=== PATIENT | male | born 1990 | race African-American/Black ===

== ENCOUNTER 2023-03-03 10:06 | Emergency (ER) | payer SELFPAY ==
[~2023-03-03] VITALS: Ht 177.8 cm; Wt 86.0 kg
[2023-03-03 10:12] VITALS: BP 110/80; PULSE 90; RESP 20; TEMP 99.5; O2SAT 98
[2023-03-03] MEDS ORDERED: CEPH500T MT (10:42)
[2023-03-03] MEDS ORDERED: SULF1TAB48 MT (10:42)
[2023-03-03] MEDS ORDERED: IBUP-2029 MT (10:42)
== END 2023-03-03 11:36 | disposition home or self-care (01) ==
LOC: ER 10:30
DX: L02.416 Cutaneous abscess of left lower limb (principal); L73.9 Follicular disorder, unspecified
CPT/HCPCS: 99281; 99283